=== PATIENT | female | born 1955 | race Caucasian/White ===

== ENCOUNTER → 2020-12-15 14:45 | Outpatient (CLI) | payer OTHER, MEDICARE, SELFPAY ==
--- NOTE | 2020-12-15 | DI.US.S_ITS ---
PROCEDURE: US CAROTID DOPPLER BI INDICATIONS: BILATERAL CAROTID ARTERIES STENOSIS TECHNIQUE: Color and pulse Doppler interrogation was performed of both carotid systems, with image documentation and velocity measurements. COMPARISON: [facility], [place], CAROTID ARTERY DOPPLER BILAT, 02/19/2015, 8:40. FINDINGS: Stenosis calculations are based on SRU (S[employer] in Ultras[employer]) criteria. Right side: Brachial blood pressure: 131/73 mm Hg. Common carotid artery peak systolic velocity: 93 cm/sec. Internal carotid artery peak systolic velocity: 125 cm/sec. Internal carotid artery end diastolic velocity: 33 cm/sec. External carotid artery peak systolic velocity: 131 cm/sec. ICA/CCA peak systolic ratio: 1.4 . Martinez scale imaging description: Mild to moderate calcific plaque, tortuous internal carotid artery. Percent internal carotid artery stenosis: 50-69%. Vertebral artery: Flow direction is antegrade. Left side: Brachial blood pressure: 116/68 mm Hg. Common carotid artery peak systolic velocity: 118 cm/sec. Internal carotid artery peak systolic velocity: 101 cm/sec. Internal carotid artery end diastolic velocity: 28 cm/sec. External carotid artery peak systolic velocity: 75 cm/sec. ICA/CCA peak systolic ratio: 0.9 . Martinez scale imaging description: Minimal soft plaque Percent internal carotid artery stenosis: Less than 50% stenosis . Vertebral artery: Flow direction is antegrade. IMPRESSION: 50-69% stenosis at the right internal carotid artery, which is tortuous. The left internal carotid artery shows less than 50% stenosis. There is little if any changed from the comparison study from 02/19/15. Peak ICA systolic flow velocity has only slightly elevated from 122 cm per second previously to 125 centimeters/second currently. Dictated by: Carlos A Saldaña M.D. on 12/15/2020 at 17:00 Approved by: Carlos A Saldaña M.D. on 12/15/2020 at 17:03
== END ==
PROVIDERS: PCP Family Medicine; Referring Provider Family Medicine; Visit Provider Family Medicine
DX: I65.23 Occlusion and stenosis of bilateral carotid arteries (principal)
CPT/HCPCS: 93880

== ENCOUNTER → 2021-08-11 11:44 | Outpatient (CLI) | payer OTHER, SELFPAY ==
--- NOTE | 2021-08-11 | DI.RAD.S_ITS ---
PROCEDURE: XR LUMBAR SPINE 2-3V INDICATIONS: RIGHT FOOT PAIN, NUMBNESS, BURNING SENSATION TECHNIQUE: 2 views of the lumbar spine were acquired. COMPARISON: None. FINDINGS: Bones: No fracture. Multilevel degenerative endplate sclerosis and spurring. Diffuse facet arthropathy. Grade 1 retrolisthesis of L1 on L2 and L2 on L3. Moderate narrowing of the L4-L5 and L5-S1 disc spaces. There is mild to moderate narrowing of the T12-L1 and L1-L2 disc spaces. Mild levocurvature. Soft tissues: Atheromatous calcifications seen in the aorta. IMPRESSION: Multilevel lumbar spondylosis and levoscoliosis as above. Dictated by: Erick Love M.D. on 08/11/2021 at 14:03 Approved by: Erick Love M.D. on 08/11/2021 at 14:05
== END ==
PROVIDERS: PCP Family Medicine; Referring Provider Family Medicine; Visit Provider Family Medicine
DX: R20.0 Anesthesia of skin (principal); M79.671 Pain in right foot; M47.816 Spondylosis without myelopathy or radiculopathy, lumbar region; M41.86 Other forms of scoliosis, lumbar region
CPT/HCPCS: 72100